=== PATIENT | female | born 1995 | race Caucasian/White ===

== ENCOUNTER → 2020-02-23 | Outpatient (CLI) | payer SELFPAY ==
--- NOTE | 2020-02-23 12:17 | RAD ---
EXAM: Left elbow, 3 views; right wrist, 3 views. HISTORY: Pain. COMPARISON: 12/15/2019 and 11/21/2019 FINDINGS: Left elbow: 3 views of the left elbow are obtained. There is internal fixation of distal humeral and proximal ulnar fractures with plates and multiple screws in anatomic alignment. The fracture lines are less distinct, consistent with a complete interval healing. There is no joint effusion. No new fracture is seen. Right wrist: 3 views of the right wrist are obtained. There is internal fixation of a distal radial metaphyseal fracture with a plate and multiple screws in anatomic alignment. There has been near complete bony bridging across the fracture line compared to the prior study. No new fracture is seen. IMPRESSION: 1. Near complete healing of distal left humeral and proximal ulnar fractures status post internal fixation. 2. Near complete healing of a distal right radial fracture status post internal fixation. Electronically signed by: Gloria Ibanez MD (02/23/2020 12:13 PM) [id number]
== END ==
LOC: DXRAD 11:01
PROVIDERS: ATTEND Physician Assistant
DX: S52.571A Other intraarticular fracture of lower end of right radius, initial encounter for closed fracture (principal); X58.XXXA Exposure to other specified factors, initial encounter; Y93.89 Activity, other specified; Y92.89 Other specified places as the place of occurrence of the external cause; Y99.8 Other external cause status
CPT/HCPCS: 73080; 73110